=== PATIENT | male | born 1985 | race Caucasian/White ===

== ENCOUNTER → 2019-08-17 11:01 | Outpatient (CLI) | payer OTHER, SELFPAY ==
[2016-07-26 12:24] VITALS: BMI 20.9
--- NOTE | 2019-08-17 11:10 | RAD_ITS ---
STUDY: X-RAY - LUMBAR SPINE REASON FOR EXAM: Male, 34 years old. acute exacerbation of chronic low back pain, patient states no known injury TECHNIQUE: 4 view(s) of the lumbar spine were obtained. COMPARISON: None FINDINGS: Normal lumbar lordosis. There is no substantial scoliosis. There is a normal alignment of the vertebrae. There is multilevel endplate spondylosis of the lumbar vertebrae. There is mild narrowing of disc space at L3-L4. Remainder of disc height is well preserved throughout the remainder of the lumbar spine. There is no demonstrated fracture. There is no demonstrated spondylolysis of the pars interarticulares. The soft tissue structures are unremarkable. RAD/L/S Spine Min 4 Views IMPRESSION: Mild spondylosis/degenerative disease with no acute fracture, spondylolisthesis or pars defect. Electronically Signed: Lupis Braxton MD at 1:08 EST , Service support ,
== END ==
PROVIDERS: Family Provider Family Medicine; PCP Family Medicine; Referring Provider Family Medicine; Visit Provider Family Medicine
DX: M54.5 Low back pain (principal); G89.29 Other chronic pain
CPT/HCPCS: 72110